=== PATIENT | female | born 1975 | race Caucasian/White ===

== ENCOUNTER 2018-11-25 07:38 | Day surgery (SDC) | payer BC ==
[~2018-11-25 07:38] MED LIST: Lidocaine 1%/Sod Bicarbonate in NS 8.4% 1 ML Syringe IDERM PRN; Sodium Chloride 0.9% 10 ML Syringe FLUSH PRN
[2018-11-25] MEDS: Lactated Ringers 1,000 ML IV SCH ×2 (08:39→11:40)
--- NOTE | 2018-11-25 09:03 | PCM.PREANE ---
Preanesthetic Assessment - Anesthesia/Transfusion/Family Hx Anesthesia History: Prior Anesthesia Reaction (nausea) Family History of Anesthesia Reaction: No Transfusion History: No Prior Transfusion(s) - Review of Systems General: No Symptoms Pulmonary: No Symptoms Cardiovascular: No Symptoms Gastrointestinal: No Symptoms Neurological: No Symptoms Other: Reports: None - Physical Assessment NPO Status Date: 11/24/18 NPO Status Time: 21:00 Pulse: 89 O2 Sat by Pulse Oximetry: 95 Respiratory Rate: 16 Blood Pressure: 124/75 Temperature: 36.4 C Vital Signs: Last Vital Signs Temp 36.4 C 11/25/18 08:43 Pulse 89 11/25/18 08:43 Resp 16 11/25/18 08:43 BP 124/75 11/25/18 08:43 Pulse Ox 95 11/25/18 08:43 Height: 1.7 m Weight: 65.771 kg ASA Class: 2 Mental Status: Alert & Oriented x3 Airway Class: Mallampati = 1 Dentition: Reports: [place](s) Thyro-Mental Finger Breadths: 3 Mouth Opening Finger Breadths: 3 ROM/Head Extension: Full Lungs: Clear to Auscultation, Normal Respiratory Effort Cardiovascular: Regular Rate, Regular Rhythm - Imaging/EKG Impressions: SR 60 on chart - Allergies Allergies/Adverse Reactions: Allergies Allergy/AdvReac Type Severity Reaction Status Date / Time No Known Allergies Allergy Verified 11/24/18 14:46 - Blood Blood Available: No Product(s) Available: None - Anesthesia Plan Pre-Op Medication Ordered: None - Acknowledgements Anesthesia Type Planned: General Anesthesia Pt an Appropriate Candidate for the Planned Anesthesia: Yes Alternatives and Risks of Anesthesia Discussed w Pt/Guardian: Yes Pt/Guardian Understands and Agrees with Anesthesia Plan: Yes PreAnesthesia Questionnaire HEENT History: Reports: Impaired Vision, Other (See Below) Other HEENT History: pharyngitis, right tympanosclerosis, wears glasses Cardiovascular History: Reports: High Cholesterol Respiratory History: Reports: None Gastrointestinal History: Reports: None Genitourinary History: Reports: Urinary Incontinence 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 Other OB/BYN History: menorrhagia Musculoskeletal History: Reports: Other (See Below) Other Musculoskeletal History: achilles rupture, muscle spasm, left elbow surgery, knee arthroscopy Neurological History: Reports: None Psychiatric History: Reports: Other (See Below) Other Psychiatric History: insomnia Endocrine/Metabolic History: Reports: None Hematologic History: Reports: None Immunologic History: Reports: None Oncologic (Cancer) History: Reports: None Dermatologic History: Reports: None - Past Surgical History Head Surgeries/Procedures: Reports: None Cardiovascular Surgical History: Reports: None Respiratory Surgical History: Reports: None GI Surgical History: Reports: Colonoscopy, EGD Female Surgical History: Reports: Section, D&C, Hysterectomy Other Female Surgeries/Procedures: x3 Endocrine Surgical History: Reports: None Neurological Surgical History: Reports: None Other Musculoskeletal Surgeries/Procedures:: left elbow surgery x2, right knee surgery Oncologic Surgical History: Reports: None Dermatological Surgical History: Reports: Other (See Below) - SUBSTANCE USE Smoking Status *Q: Never Smoker Tobacco Use Within Last Twelve Months: No Second Hand Smoke Exposure: No Days Per Week of Alcohol Use: 1 Number of Drinks Per Day: 0 Total Drinks Per Week: 0 Recreational Drug Use History: No - HOME MEDS Home Medications: Home Meds Ascorbic Acid [Vitamin C] 1,000 mg PO DAILY 11/24/18 [History] Calcium Carbonate [Calcium] 1,000 mg PO DAILY 11/24/18 [History] Cholecalciferol (Vitamin D3) [Vitamin D3] 1,000 unit PO DAILY 11/24/18 [History] Cyclobenzaprine HCl 10 mg PO TID PRN 11/24/18 [History] Fish Oil/[employer]-3 Fatty Acids [Fish Oil 1,000 MG] 1 gm PO DAILY 11/24/18 [History ] Multivitamin [Zoo Chews] 1 tab PO DAILY 11/24/18 [History] Plant Stanol Vee [Cholest Off] 900 mg PO DAILY 11/24/18 [History] traMADol HCl [Tramadol HCl] 50 - 100 mg PO Q4H PRN 11/24/18 [History] traZODone HCl [Trazodone HCl] 50 mg PO BEDTIME 11/24/18 [History] Acetaminophen/HYDROcodone [[place] 325-5 MG] 1 - 2 tab PO Q6H PRN #40 tablet 11/25 [Rx] Aspirin 325 mg PO BID #84 tab 11/25/18 [Rx] - CURRENT (IN HOUSE) MEDS Current Meds: Current Medications Lactated Ringer's (Ringers, Lactated) 1,000 mls @ 125 mls/hr IV ASDIRECTED COURTNEY Stop: 03/07/19 23:00 Last Admin: 11/25/18 08:39 Dose: 125 mls/hr Lidocaine/Sodium Bicarbonate (Buffered Lidocaine 1% In Ns 8.4%) 0.25 ml IDERM ONETIME PRN PRN Reason: Prior to IV Start Stop: 11/25/18 23:00 Last Admin: 11/25/18 08:39 Dose: 0.25 ml Scopolamine (Transderm-Scop) 1.5 mg TOP ONETIME ONE Stop: 11/25/18 08:58 Sodium Chloride (Saline Flush) 10 ml FLUSH ASDIRECTED PRN PRN Reason: Keep Vein Open Stop: 11/25/18 23:00
[2018-11-25] MEDS ORDERED: Bupivacaine 0.25% 30 ML SDV ONE (09:06)
[2018-11-25] MEDS ORDERED: Propofol 200 MG/20 ML SDV ONE (09:10)
[2018-11-25] MEDS ORDERED: Ondansetron 4 MG/2 ML SDV ONE (09:10)
[2018-11-25] MEDS ORDERED: Rocuronium 50 MG/5 ML Vial ONE (09:10)
[2018-11-25] MEDS ORDERED: Midazolam 1 MG/ML 2 ML SDV ONE (09:11)
[2018-11-25] MEDS ORDERED: Lidocaine 1% PF 2 ML SDV ONE (09:11)
[2018-11-25] MEDS ORDERED: fentaNYL 250 MCG/5 ML SDV ONE (09:11)
[2018-11-25] MEDS ORDERED: ceFAZolin 1 GM Vial ONE (09:11)
[2018-11-25] MEDS ORDERED: Scopolamine 1.5 MG Transdermal Patch TOP ONE (09:30)
[2018-11-25] MEDS ORDERED: Ketorolac 30 MG/ML SDV ONE (10:12)
[2018-11-25] MEDS ORDERED: Dexamethasone 4 MG/ML 5 ML MDV ONE (10:28)
[2018-11-25] MEDS ORDERED: HYDROmorphone 0.5 MG/0.5 ML Syringe IVPUSH PRN (11:04)
[2018-11-25] MEDS ORDERED: fentaNYL 100 MCG/2 ML SDV IVPUSH PRN (11:04)
--- NOTE | 2018-11-25 11:06 | PCM.POSTAN ---
POST ANESTHESIA ASSESSMENT - MENTAL STATUS Mental Status: Alert, Oriented - VITAL SIGNS Pulse Rate: 98 SaO2: 98 Resp Rate: 9 Blood Pressure: 107/55 Temperature: 36.3 C - RESPIRATORY Respiratory Status: Respiratory Rate WNL, Airway Patent, O2 Saturation Stable, Supplemental Oxygen - CARDIOVASCULAR CV Status: Pulse Rate WNL, Blood Pressure Stable - GASTROINTESTINAL GI Status: No Symptoms - PAIN Pain Score: 0 - POST OP HYDRATION Hydration Status: Adequate & Stable - OBSERVATIONS Free Text/Narrative:: no anesthesia complications noted
[2018-11-25] MEDS ORDERED: diphenhydrAMINE 50 MG/ML SDV IVPUSH ONE (11:45)
[2018-11-25] MEDS ORDERED: Acetaminophen/HYDROcodone 325-5 MG Tab PO PRN (12:50)
[2018-11-25 13:48] VITALS: BP 111/65
--- NOTE | 2018-11-29 09:48 | PCM.OPNOTE ---
- General Post-Op/Procedure Note Date of Surgery/Procedure: 11/25/18 Operative Procedure(s): right achilles tendon primary repair Pre Op Diagnosis: right achilles tendon rupture Post-Op Diagnosis: Same Anesthesia Technique: General ET Tube, Local Primary Surgeon: Cristian Syed Anesthesia Provider: Clive Davis Loom Blower: Bettie Berg EBL in mLs: 5 Complications: None Condition: Good
--- NOTE | 2018-11-29 10:28 | OR ---
DATE OF OPERATION: 11/25/2018 SURGEON: Cristian Syed MD OPERATIVE PROCEDURE: Right Achilles tendon primary repair. PREOPERATIVE DIAGNOSIS: Right Achilles tendon rupture. POSTOPERATIVE DIAGNOSIS: Right Achilles tendon rupture. ANESTHESIA: General endotracheal intubation with local. ANESTHESIA PROVIDER: Clive Davis CRNA TECHNICIAN'S HELPER: Bettie Berg PA-C. ESTIMATED BLOOD LOSS: Less than 5 mL. COMPLICATIONS: None. CONDITION: Stable. DESCRIPTIOIN OF PROCEDURE: The patient was identified in the preop holding area. Proper site was marked and identified by the surgeon. The patient was taken back to the operating room where after adequate anesthesia, the patient was placed in a prone positioning. The wedges were placed and were well padded. The patient was well positioned. The patient's neck was in neutral. At this time, right lower extremity had a nonsterile tourniquet applied and was then sterilely prepped and draped in the usual sterile fashion. OR time-out was performed. The patient received 2 g IV Ancef. Right lower extremity was then exsanguinated. Tourniquet was insufflated to 250 mmHg. Standard medial incision just to the medial side of the Achilles tendon was taken down, the paratenon was then opened. The patient was noted to have a mid substance tear with significant injury to the midsubstance of the Achilles tendon with retraction. At this time, adequate saline was irrigated through the previous injury area. #5 FiberWire was then modified Krackow stitch on either side of the tendon and then the 2 ends medial and lateral were then tied and found to have adequate primary apposition of the 2 ends of the tear. At this time, 4 strands of #5 FiberWire were then also utilized and the patient was noted to have good repair of the tendon and 0 Vicryl was then used for over-sewing of the tendon and 0 Vicryl was then also used for closure of the paratenon, 2-0 Vicryl was used subcutaneously, and nylon was used for the skin. The patient was placed in a sterile soft dressing and a posterior slab splint and sent to the PACU in stable condition. OPERATION PERFORMED: DESCRIPTION OF PROCEDURE: MMODAL /[id number]
== END 2018-11-25 13:25 | disposition home or self-care (01) ==
LOC: JD.SDS 07:38
PROVIDERS: ATTEND Orthopaedic Surgery
DX: S86.011A Strain of right Achilles tendon, initial encounter (principal); E78.5 Hyperlipidemia, unspecified; G47.00 Insomnia, unspecified; G43.909 Migraine, unspecified, not intractable, without status migrainosus; J02.9 Acute pharyngitis, unspecified; M62.838 Other muscle spasm; Z87.891 Personal history of nicotine dependence; Z79.899 Other long term (current) drug therapy; Z79.82 Long term (current) use of aspirin; X58.XXXA Exposure to other specified factors, initial encounter
CPT/HCPCS: 27650; A9270; J0690; J1100; J1200; J1885; J2001; J2250; J2405; J2704; J3010; J3490; J7120; 01472

== ENCOUNTER 2020-05-31 08:54 | Day surgery (SDC) | payer BC ==
[~2020-05-31 08:54] MED LIST changes: +Dexamethasone 4 MG/ML 5 ML MDV ONE; +Ketamine 500 mg/10 ML MDV ONE; +Ketorolac 30 MG/ML SDV ONE; +Lactated Ringers 1,000 ML IV SCH; +Lactated Ringers 1,000 ML ONE; +Lidocaine 1% 4 ML ONE; +Midazolam 1 MG/ML 2 ML SDV ONE; +Ondansetron 4 MG/2 ML SDV ONE; +Propofol 200 MG/20 ML SDV ONE; +Scopolamine 1.5 MG Transdermal Patch TRDERM ONE; +ceFAZolin 1 GM Vial ONE; +diphenhydrAMINE 50 MG/ML SDV ONE; +fentaNYL 100 MCG/2 ML SDV ONE
[2020-05-31] MEDS ORDERED: Bupivacaine 0.25% 10 ML SDV ONE (09:19)
--- NOTE | 2020-05-31 09:34 | PCM.PREANE ---
Preanesthetic Assessment - Anesthesia/Transfusion/Family Hx Anesthesia History: Prior Anesthesia Reaction (nausea) Type of Anesthesia Reaction: Excessive Nausea/Vomiting Family History of Anesthesia Reaction: No Transfusion History: No Prior Transfusion(s) Intubation History: Unknown - Review of Systems General: No Symptoms Pulmonary: No Symptoms (Smoker: quit 2009) Cardiovascular: No Symptoms Gastrointestinal: No Symptoms Neurological: No Symptoms, Headache (migraines) Other: Reports: Easy Bruising - Physical Assessment NPO Status Date: 05/30/20 NPO Status Time: 23:30 Vital Signs: Last Vital Signs Temp 36.4 C 05/31/20 08:55 Pulse 74 05/31/20 08:55 Resp 16 05/31/20 08:55 BP 110/59 L 05/31/20 08:55 Pulse Ox 97 05/31/20 08:55 Height: 1.7 m Weight: 67.585 kg ASA Class: 2 Mental Status: Alert & Oriented x3 Airway Class: Mallampati = 2 Dentition: Reports: Normal Dentition, [place] Thyro-Mental Finger Breadths: 3 Mouth Opening Finger Breadths: 3 ROM/Head Extension: Full Lungs: Clear to Auscultation, Normal Respiratory Effort Cardiovascular: Regular Rate, Regular Rhythm, No Murmurs - Lab Values: Laboratory Last Values SARS Virus RNA (PCR) Negative (NEGATIVE) 05/29/20 10:30 MRSA (PCR) Negative 05/22/20 16:26 - Allergies Allergies/Adverse Reactions: Allergies Allergy/AdvReac Type Severity Reaction Status Date / Time No Known Allergies Allergy Verified 05/30/20 14:01 - Anesthesia Plan Pre-Op Medication Ordered: None - Acknowledgements Anesthesia Type Planned: General Anesthesia, MAC Pt an Appropriate Candidate for the Planned Anesthesia: Yes Alternatives and Risks of Anesthesia Discussed w Pt/Guardian: Yes Pt/Guardian Understands and Agrees with Anesthesia Plan: Yes PreAnesthesia Questionnaire HEENT History: Reports: Impaired Vision, Other (See Below) Other HEENT History: pharyngitis, right tympanosclerosis, wears glasses Cardiovascular History: Reports: High Cholesterol Respiratory History: Reports: None Gastrointestinal History: Reports: None Genitourinary History: Reports: Urinary Incontinence 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 Other OB/BYN History: menorrhagia Musculoskeletal History: Reports: Other (See Below) Other Musculoskeletal History: achilles rupture, muscle spasm, left elbow surgery, knee arthroscopy Neurological History: Reports: Migraines Psychiatric History: Reports: Other (See Below) Other Psychiatric History: insomnia Endocrine/Metabolic History: Reports: None Hematologic History: Reports: None Immunologic History: Reports: None Oncologic (Cancer) History: Reports: None, Other (See Below) Other Oncologic History: skin cancer Dermatologic History: Reports: None - Infectious Disease History Infectious Disease History: Reports: None - Past Surgical History Head Surgeries/Procedures: Reports: None Cardiovascular Surgical History: Reports: None Respiratory Surgical History: Reports: None GI Surgical History: Reports: Colonoscopy, EGD Female Surgical History: Reports: Section, D&C, Hysterectomy Other Female Surgeries/Procedures: x3 Endocrine Surgical History: Reports: None Neurological Surgical History: Reports: None Other Musculoskeletal Surgeries/Procedures:: left elbow surgery x2, right knee surgery Oncologic Surgical History: Reports: None Dermatological Surgical History: Reports: Other (See Below) - SUBSTANCE USE Smoking Status *Q: Former Smoker Recreational Drug Use History: No - HOME MEDS Home Medications: Home Meds Calcium Carbonate [Calcium] 1,000 mg PO DAILY 11/24/18 [History] Multivitamin [Zoo Chews] 1 tab PO DAILY 11/24/18 [History] traZODone HCl [Trazodone HCl] 50 mg PO BEDTIME 11/24/18 [History] Lactobacillus Combo No.10 [Probiotic] 1 cap PO DAILY 05/30/20 [History] Aspirin 325 mg PO BID #84 tab 05/31/20 [Rx] Cyclobenzaprine [Flexeril] 10 mg PO BID PRN #20 tab 05/31/20 [Rx] Tapentadol [Nucynta] 50 - 100 mg PO Q6H PRN #40 tab 05/31/20 [Rx] - CURRENT (IN HOUSE) MEDS Current Meds: Current Medications Lactated Ringer's (Ringers, Lactated) 1,000 mls @ 125 mls/hr IV ASDIRECTED COURTNEY Stop: 05/31/20 23:00 Last Admin: 05/31/20 09:15 Dose: 125 mls/hr Documented by: Lidocaine/Sodium Bicarbonate (Buffered Lidocaine 1% In Ns 8.4%) 0.25 ml IDERM ONETIME PRN PRN Reason: Prior to IV Start Stop: 05/31/20 18:00 Last Admin: 05/31/20 09:15 Dose: 0.25 ml Documented by: Sodium Chloride (Saline Flush) 10 ml FLUSH ASDIRECTED PRN PRN Reason: Keep Vein Open Stop: 05/31/20 18:00 Discontinued Medications Bupivacaine HCl (Sensorcaine-Mpf 0.25%) Confirm Administered Dose 30 ml .ROUTE .STK-MED ONE Stop: 05/31/20 09:20 Cefazolin Sodium (Ancef) Confirm Administered Dose 2 gm .ROUTE .STK-MED ONE Stop: 05/31/20 07:24 Dexamethasone (Dexamethasone) Confirm Administered Dose 20 mg .ROUTE .STK-MED ONE Stop: 05/31/20 07:24 Diphenhydramine HCl (Benadryl) Confirm Administered Dose 50 mg .ROUTE .STK-MED ONE Stop: 05/31/20 08:34 Fentanyl (Sublimaze) Confirm Administered Dose 100 mcg .ROUTE .STK-MED ONE Stop: 05/31/20 07:24 Lidocaine HCl (Xylocaine-Mpf 1%) Confirm Administered Dose 4 mls @ as directed .ROUTE .STK-MED ONE Stop: 05/31/20 07:24 Lactated Ringer's (Ringers, Lactated) Confirm Administered Dose 1,000 mls @ as directed .ROUTE .STK-MED ONE Stop: 05/31/20 07:24 Ketamine HCl (Ketalar) Confirm Administered Dose 500 mg .ROUTE .STK-MED ONE Stop: 05/31/20 07:25 Ketorolac Tromethamine (Toradol) Confirm Administered Dose 30 mg .ROUTE .STK-MED ONE Stop: 05/31/20 07:24 Midazolam HCl (Versed 1 Mg/Ml) Confirm Administered Dose 2 mg .ROUTE .STK-MED ONE Stop: 05/31/20 07:25 Ondansetron HCl (Zofran) Confirm Administered Dose 4 mg .ROUTE .STK-MED ONE Stop: 05/31/20 07:24 Propofol (Diprivan 20 Ml) Confirm Administered Dose 200 mg .ROUTE .STK-MED ONE Stop: 05/31/20 07:26 Scopolamine (Transderm-Scop) 1.5 mg TRDERM ONETIME ONE Stop: 05/31/20 07:14 Last Admin: 05/31/20 09:06 Dose: 1.5 mg Documented by:
[2020-05-31] MEDS ORDERED: Ondansetron 4 MG/2 ML SDV IVPUSH PRN (11:10)
[2020-05-31] MEDS ORDERED: HYDROmorphone 0.5 MG/0.5 ML Syringe IVPUSH PRN (11:10)
[2020-05-31] MEDS ORDERED: ePHEDrine 50 MG/ML SDV IVPUSH PRN (11:10)
[2020-05-31] MEDS ORDERED: fentaNYL 100 MCG/2 ML SDV IVPUSH PRN (11:10)
[2020-05-31] MEDS ORDERED: Phenylephrine 1 MG in Sodium Chloride 0.9% 10 ML IV SCH (11:15)
[2020-05-31] MEDS ORDERED: HYDROmorphone 0.5 MG/0.5 ML Syringe ONE (11:18)
[2020-05-31] MEDS ORDERED: Lactated Ringers 1,000 ML ONE (11:19)
[2020-05-31] MEDS ORDERED: Propofol 200 MG/20 ML SDV ONE (11:21)
--- NOTE | 2020-05-31 12:02 | PCM48HPAN ---
Post Anesthesia Note - EVALUATION WITHIN 48HRS OF ANESTHETIC Vital Signs in Normal Range: Yes Patient Participated in Evaluation: Yes Respiratory Function Stable: Yes Airway Patent: Yes Cardiovascular Function Stable: Yes Hydration Status Stable: Yes Pain Control Satisfactory: Yes Nausea and Vomiting Control Satisfactory: Yes Mental Status Recovered: Yes Vital Signs: Last Vital Signs Temp 36.4 C 05/31/20 08:55 Pulse 74 05/31/20 08:55 Resp 16 05/31/20 08:55 BP 110/59 L 05/31/20 08:55 Pulse Ox 97 05/31/20 08:55
[2020-05-31 13:54] VITALS: BP 104/64; PULSE 51
--- NOTE | 2020-06-06 12:19 | PCM.OPNOTE ---
- General Post-Op/Procedure Note Date of Surgery/Procedure: 05/31/20 Operative Procedure(s): right scar revision with achilles debridement Pre Op Diagnosis: painful right achilles tendon Post-Op Diagnosis: Same Anesthesia Technique: Local, MAC Primary Surgeon: Cristian Syed Anesthesia Provider: Jaky Wallace Silverware Buffing Machine Operator: Magalis Garcia in mLs: 5 Complications: None Condition: Good
--- NOTE | 2020-06-06 14:42 | OR ---
DATE OF OPERATION: 05/31/2020 SURGEON: Cristian Syed MD OPERATION PERFORMED: Right Achilles scar revision with Achilles tendon debridement. PREOPERATIVE DIAGNOSIS: Painful right Achilles tendon. POSTOPERATIVE DIAGNOSIS: Painful right Achilles tendon. ANESTHESIA: Local MAC. ANESTHESIA PROVIDER: Jaky Wallace CRNA HEAD MIXER: Magalis Garcia LPN ESTIMATED BLOOD LOSS: 5 mL. COMPLICATIONS: None. CONDITION: Stable. DESCRIPTION OF PROCEDURE: The patient was identified in the preoperative holding area. Proper site was marked and identified by the surgeon. The patient was taken back to the operative theater, where after adequate anesthesia, the patient was placed in prone position. Pads were placed. The patient's neck was in a neutral position. At this time, right lower extremity had a nonsterile tourniquet applied and then sterilely prepped and draped in the usual sterile fashion. OR time-out was performed. Patient received 2 g of IV Ancef. Right lower extremity was exsanguinated. Tourniquet was insufflated to 200 mmHg. The previous incision was utilized. The patient was noted to have palpable sutures through the skin. This was taken down to the paratenon. The paratenon was noted to be notably scarred on the Achilles tendon and it was noted to be scarred into the fat pad as well anteriorly to the Achilles tendon as well. This was then freed up. The patient was noted to have noticeable scar tissue over the FiberWire knots. The FiberWire knot as well as the scar tissue were then removed in multiple areas of the Achilles tendon until it had smooth borders with no signs of scar tissue. The patient and I did discuss before surgery that she had pain all the way up into proximal Achilles as well as gastroc muscle belly, but we did not want to go that way as the patient did not have any sutures, and I do not believe she would benefit from us exploring that proximal. Once there was no more scar tissue noted and the patient had all knots removed, adequate saline was irrigated through the wound. 0 Vicryl was used to over-sew the tendon. 3-0 Vicryl was used subcutaneously, and 4-0 nylon was used for closure of skin. Patient was placed in a sterile soft dressing and a Ruth wound dressing was placed. The patient will be nonweightbearing and will follow up in clinic in 2 weeks' time. MMODAL /[id number]
== END 2020-05-31 13:50 | disposition home or self-care (01) ==
LOC: JD.SDS 08:54
PROVIDERS: ATTEND Orthopaedic Surgery
DX: M76.61 Achilles tendinitis, right leg (principal); S86.011S Strain of right Achilles tendon, sequela; E78.00 Pure hypercholesterolemia, unspecified; E78.5 Hyperlipidemia, unspecified; G47.00 Insomnia, unspecified; Z01.812 Encounter for preprocedural laboratory examination; Z20.828 Contact with and (suspected) exposure to other viral communicable diseases; Z87.891 Personal history of nicotine dependence; Z79.899 Other long term (current) drug therapy; W19.XXXS Unspecified fall, sequela
CPT/HCPCS: 00400; 87641; A9270-GY; J0690; J1100; J1170; J1200; J1885; J2001; J2250; J2405; J2704; J3010; J3490; J7120; U0002

== ENCOUNTER 2022-05-08 18:02 | Emergency (ER) | payer BC ==
[2022-05-08 18:41] VITALS: BP 142/69; PULSE 84
[2022-05-08] MEDS ORDERED: Sodium Chloride 0.9% 10 ML Syringe FLUSH PRN (19:12)
[2022-05-08] MEDS ORDERED: Ondansetron 4 MG/2 ML SDV IVPUSH ONE (19:13)
[2022-05-08] MEDS ORDERED: Sodium Chloride 0.9% 1,000 ML IV SCH (19:15)
[2022-05-08] MEDS ORDERED: Ketorolac 30 MG/ML SDV IVPUSH ONE (19:40)
== END 2022-05-08 21:09 | disposition home or self-care (01) ==
LOC: JD.ED 18:02
DX: R10.11 Right upper quadrant pain (principal); E78.00 Pure hypercholesterolemia, unspecified; Z79.82 Long term (current) use of aspirin; Z79.899 Other long term (current) drug therapy; Z20.822 Contact with and (suspected) exposure to COVID-19
CPT/HCPCS: 36415; 71045; 80053; 83690; 84484; 85025; 85379; 86140; 87635; 93005; 96361; 96374; 96375; 99284; J1885; J2405; J3490; J7030; 93010; U0002

== ENCOUNTER 2025-08-18 18:00 | Emergency (ER) | payer BC ==
[2025-08-18] MEDS ORDERED: Sodium Chloride 0.9% 10 ML Syringe FLUSH PRN (18:31)
[2025-08-18] MEDS: Ketorolac 30 MG/ML SDV IVPUSH ONE (18:48)
[2025-08-18 19:01] LABS: BASOPHILS ABSOLUTE AUTO 0.0 K/mm3 (0.0-0.2); BASOPHILS PERCENT AUTO 0.5 % (0.0-1.0); EOSINOPHILS ABSOLUTE AUTO 0.2 K/mm3 (0.0-0.4); EOSINOPHILS PERCENT AUTO 2.8 % (0.0-6.0); IMMATURE GRAN ABSOLUTE AUTO 0.01 K/mm3 (0.00-0.05); IMMATURE GRAN PERCENT AUTO 0.2 % (0.0-0.4); LYMPHOCYTES ABSOLUTE AUTO 3.0 K/mm3 (1.0-4.8); LYMPHOCYTES PERCENT AUTO 52.4 % (24.0-44.0); MEAN PLATELET VOLUME 9.1 fl (9.4-12.3); MONOCYTES ABSOLUTE AUTO 0.4 K/mm3 (0.0-0.8); MONOCYTES PERCENT AUTO 6.7 % (0.0-8.0); NEUTROPHILS ABSOLUTE AUTO 2.1 K/mm3 (1.8-7.7); NEUTROPHILS PERCENT AUTO 37.4 % (41.0-71.0); NRBC ABSOLUTE 0.00 (0.00-0.02); NRBC PERCENT 0.0 % (0.0-0.2); PLATELET COUNT,PLT 196 K/mm3 (150-400); RED BLOOD CELL COUNT 4.90 M/mm3 (4.10-5.30); WHITE BLOOD CELL COUNT,WBC 5.71 K/mm3 (3.9-11.3)
[2025-08-18 19:20] LABS: A/G RATIO 1.1 (1-2); ALANINE AMINOTRANSFERASE,ALT 40.0 U/L (14-59); ASPARTATE AMNIOTRANSFERASE,AST 26.0 U/L (15-37); BILIRUBIN TOTAL 0.4 mg/dL (0.2-1.0); BLOOD UREA NITROGEN,BUN 9.0 mg/dL (7-18); CARBON DIOXIDE,CO2 29.0 mEq/L (21-32); CHLORIDE,CL 102.0 mEq/L (98-107); CREATININE 0.7 mg/dL (0.55-1.02); EST CRCL DRUG DOSING (CG) 93.5 mL/min; ESTIMATED GFR 105.0 mL/min (>60); GLUCOSE RANDOM 127.0 mg/dL (70-99); POTASSIUM,K 4.0 mEq/L (3.5-5.1); PROTEIN TOTAL,TP 7.6 g/dl (6.4-8.2); SODIUM,NA 139.0 mEq/L (136-145); TROPONIN I HIGH SENSITIVITY 6.0 pg/mL (<=51)
[2025-08-18] MEDS: methylPREDNISolone Sodium Succinate 40 MG/1 ML SDV IVPUSH ONE (20:31)
[2025-08-18 21:14] VITALS: BP 128/75; PULSE 87
== END 2025-08-18 20:55 | disposition home or self-care (01) ==
LOC: JD.ED 18:00
DX: R07.1 Chest pain on breathing (principal); E78.00 Pure hypercholesterolemia, unspecified; Z79.899 Other long term (current) drug therapy; Z87.891 Personal history of nicotine dependence
CPT/HCPCS: 36415; 71045; 80053; 83735; 84484; 85025; 86140; 96374; 96375; 99285; J1885; J2919; J1171

== ENCOUNTER 2025-08-30 11:08 | Emergency (ER) | payer BC ==
[2025-08-30] MEDS ORDERED: Sodium Chloride 0.9% 10 ML Syringe FLUSH PRN (11:23)
[2025-08-30 11:42] LABS: BASOPHILS ABSOLUTE AUTO 0.0 K/mm3 (0.0-0.2); BASOPHILS PERCENT AUTO 0.6 % (0.0-1.0); EOSINOPHILS ABSOLUTE AUTO 0.1 K/mm3 (0.0-0.4); EOSINOPHILS PERCENT AUTO 1.4 % (0.0-6.0); IMMATURE GRAN ABSOLUTE AUTO 0.00 K/mm3 (0.00-0.05); IMMATURE GRAN PERCENT AUTO 0.0 % (0.0-0.4); LYMPHOCYTES ABSOLUTE AUTO 0.6 K/mm3 (1.0-4.8); LYMPHOCYTES PERCENT AUTO 16.8 % (24.0-44.0); MEAN PLATELET VOLUME 9.2 fl (9.4-12.3); MONOCYTES ABSOLUTE AUTO 0.4 K/mm3 (0.0-0.8); MONOCYTES PERCENT AUTO 10.3 % (0.0-8.0); NEUTROPHILS ABSOLUTE AUTO 2.5 K/mm3 (1.8-7.7); NEUTROPHILS PERCENT AUTO 70.9 % (41.0-71.0); NRBC ABSOLUTE 0.00 (0.00-0.02); NRBC PERCENT 0.0 % (0.0-0.2); PLATELET COUNT,PLT 167 K/mm3 (150-400); RED BLOOD CELL COUNT 5.17 M/mm3 (4.10-5.30); WHITE BLOOD CELL COUNT,WBC 3.58 K/mm3 (3.9-11.3)
[2025-08-30] MEDS: Ondansetron 4 MG/2 ML SDV IVPUSH ONE (11:53)
[2025-08-30 11:57] LABS: INR 0.97
[2025-08-30 11:58] LABS: PTT,PARTIAL THROMBOPLSTIN TIME 27.2 SECONDS (21.7-31.4)
[2025-08-30 12:06] LABS: LACTIC ACID 1.3 mmol/L (0.4-2.0)
[2025-08-30 12:07] LABS: A/G RATIO 1.1 (1-2); ALANINE AMINOTRANSFERASE,ALT 46.0 U/L (14-59); ASPARTATE AMNIOTRANSFERASE,AST 34.0 U/L (15-37); BILIRUBIN TOTAL 0.4 mg/dL (0.2-1.0); BLOOD UREA NITROGEN,BUN 8.0 mg/dL (7-18); CARBON DIOXIDE,CO2 27.0 mEq/L (21-32); CHLORIDE,CL 101.0 mEq/L (98-107); CREATININE 0.8 mg/dL (0.55-1.02); EST CRCL DRUG DOSING (CG) 78.09 mL/min; ESTIMATED GFR 90.0 mL/min (>60); GLUCOSE RANDOM 99.0 mg/dL (70-99); POTASSIUM,K 3.8 mEq/L (3.5-5.1); PROTEIN TOTAL,TP 8.2 g/dl (6.4-8.2); SODIUM,NA 137.0 mEq/L (136-145); TROPONIN I HIGH SENSITIVITY 5.0 pg/mL (<=51)
[2025-08-30] MEDS: Sodium Chloride 0.9% 10 ML Syringe FLUSH PRN (12:41)
[2025-08-30] MEDS: Iopamidol 612 MG/ML 100 ML Bottle IVPUSH ONE (12:41)
[2025-08-30 12:43] LABS: APPEARANCE,URINE CLEAR (Clear); GLUCOSE,URINE NEGATIVE (Negative); OCCULT BLOOD,URINE NEGATIVE (Negative)
[2025-08-30 15:20] VITALS: BP 106/62; PULSE 90
== END 2025-08-30 14:30 | disposition home or self-care (01) ==
LOC: JD.ED 11:08
DX: J10.1 Influenza due to other identified influenza virus with other respiratory manifestations (principal); E86.0 Dehydration; Z90.710 Acquired absence of both cervix and uterus; Z79.82 Long term (current) use of aspirin; Z79.899 Other long term (current) drug therapy
CPT/HCPCS: 36415; 71045; 71275; 80053; 81003; 83605; 83880; 84484; 85025; 85610; 85730; 87040; 87428; 93005; 96361; 96374; 99285; A9270; J2405; J7030; Q9967; 93010; 99284